=== PATIENT | male | born 1955 | race Asian ===

== ENCOUNTER 2017-11-27 19:03 | Emergency (ER) | payer OTHER ==
[2017-11-27 19:24] VITALS: BP 148/94; PULSE 81; TEMP 98.2; BMI 25.1
[2017-11-27] MEDS ORDERED: LIDOCAINE HCL 2% (20ML MULTI-DOSE VIAL) NR ONE (21:59)
--- NOTE | 2017-11-27 22:40 | PDOC ---
History of Present Illness - General Chief Complaint: Laceration Stated Complaint: PCP SENT/LACERATION Time Seen by Provider: 11/27/17 20:28 History Source: Patient Exam Limitations: No Limitations - History of Present Illness Initial Comments: CHIEF COMPLAINT: 62 y/o male sent from with finger lac. HISTORY OF PRESENT ILLNESS: Patient sustained laceration to left middle finger with a saw while cutting metal. He went to urgent care where he was given a tetanus shot. He denies numbness/tingling in the finger. Patient is diabetic. Vital signs on arrival are within normal limits. REVIEW OF SYSTEMS: GENERAL/CONSTITUTIONAL: No fever/chills. No weakness. No weight change. MUSCULOSKELETAL: +left middle finger laceration. No neck or back pain. SKIN: No rash or easy bruising. NEUROLOGIC: No headache, vertigo, loss of consciousness, or loss of sensation. PHYSICAL EXAM: VITAL_SIGNS: within normal limits GENERAL_APPEARANCE: alert, cooperative, no obvious discomfort. MENTAL_STATUS: speech clear, oriented X 3, responds appropriately to questions. NEURO: motor intact and sensory intact in injured extremity. EXTREMITIES: 4cm irregular laceration with flap to left middle distal finger, part of laceration along lateral nail bed. SKIN: warm, dry, good color. Past History - Past Medical History Allergies/Adverse Reactions: Allergies Allergy/AdvReac Type Severity Reaction Status Date / Time No Known Allergies Allergy Verified 11/27/17 19:23 Home Medications: Ambulatory Orders Amlodipine Besylate [Norvasc -] 7.5 mg PO DAILY 04/17/14 Colchicine 0 mg PO DAILY 04/17/14 Indomethacin 0 mg PO PRN 04/17/14 Sulfamethoxazole/Trimethoprim [Bactrim Ds -] 1 tab PO BID #14 tablet 11/27/17 Anemia: No Asthma: No Cancer: No Cardiac Disorders: No CVA: No COPD: No CHF: No DVT: No Dementia: No Diabetes: No Dialysis: No HTN: Yes Liver Disease: No Psychiatric Problems: No Seizures: No Lung CA: No - Immunization History Immunization Up to Date: Yes - Suicide/Smoking/Psychosocial Hx Smoking History: Never smoked Have you smoked in the past 12 months: No Number of Cigarettes Smoked Daily: 2 Information on smoking cessation initiated: No Hx Alcohol Use: No Drug/Substance Use Hx: No Substance Use Type: None *Physical Exam - Vital Signs Last Vital Signs Temp Pulse Resp BP Pulse Ox 98.2 F 81 16 148/94 100 11/27/17 19:22 11/27/17 19:22 11/27/17 19:22 11/27/17 19:22 11/27/17 19:22 Procedures - Laceration/Wound Repair Left Finger 3rd digit Wound Length: 2.6 to 5.0 cm Wound Explored: clean Wound's Depth, Shape: into muscle, irregular, flap Irrigated w/ Saline: Yes Betadine Prep: Yes Anesthesia: 1% Lidocaine Amount of Anesthetic (ccs): 5 Wound Debrided: moderate Wound Repaired With: Sutures Suture Size/Type: 4:0 Number of Sutures: 7 Layer Closure: Yes Deep Layer Suture Size/Type: 5:0 Number of Deep Layer Sutures: 1 Sterile Dressing Applied: Yes Splint Applied: No Medical Decision Making - Medical Decision Making A/P: 62 y/o male with lac to left middle finger. Tetanus given at urgent care. Plan is as follows: 1. xray 2. lac repair xray appears to be without bone involvement. Patient tolerated laceration well Will discharge to home with rx for bactrim, instructions to keep wound clean and dry and return in 7-10 days for suture removal. Patient instructed to return sooner if fever, streaking or signs of infection The patient verbalizes understanding of all instructions, has no further questions and is awaiting discharge. *DC/Admit/Observation/Transfer Diagnosis at time of Disposition: Laceration of finger Qualifiers: Encounter type: initial encounter Finger: middle finger Damage to nail status: unspecified Foreign body presence: without foreign body Laterality: left Qualified Code(s): S61.213A - Laceration without foreign body of left middle finger without damage to nail, initial encounter - Discharge Dispostion Disposition: HOME Condition at time of disposition: Improved - Prescriptions Prescriptions: Sulfamethoxazole/Trimethoprim [Bactrim Ds -] 1 tab PO BID #14 tablet - Referrals Referrals: Mahad Alvarado MD [Primary Care Provider] - - Patient Instructions Printed Discharge Instructions: DI for Laceration Repair Additional Instructions: Discharge instructions: -You have a finger laceration -You had 7 stitches placed that need to be removed in 7-10 days at your doctor' s office, an Urgent Care or any ER. -Keep wound dry for 24 hours then gently wash with soap and water -Keep wound clean -A prescription for antibiotics has been sent to your pharmacy -You can take Motrin for pain if needed -Return to the ER with any worsening or concerning symptoms. - Post Discharge Activity
== END 2017-11-27 22:45 | disposition home or self-care (01) ==
LOC: JER 19:03
PROC: 0JQK0ZZ Repair Left Hand Subcutaneous Tissue and Fascia, Open Approach (ICD-10-PCS; principal; 2017-11-27)
DX: S61.213A Laceration without foreign body of left middle finger without damage to nail, initial encounter (principal); W27.0XXA Contact with workbench tool, initial encounter; Y93.89 Activity, other specified; Y92.89 Other specified places as the place of occurrence of the external cause; Y99.8 Other external cause status
CPT/HCPCS: 73140-TC-RT-FY; 99284-25